=== PATIENT | female | born 1940 | race Caucasian/White ===

== ENCOUNTER 2019-02-04 20:56 | Emergency (ER) | payer BC ==
[~2019-02-04] VITALS: Ht 160 cm
[~2019-02-04 20:56] MED LIST: COUMADIN 5 MG TA5 M1 PO; ENOXAPARIN150 MG/11 SUBQ; LISINOPRIL10 MG PO; NORCO 5-325 TA1 EACH PO; PLAVIX 75 MG TA75 M1 PO
[2019-02-04 21:41] LABS: HEMATOCRIT 37.2 % (37.0-47.0); HEMOGLOBIN 12.1 gm/dL (12.0-15.0); MCH 31.5 pg (26.0-34.0); MCHC 32.6 g/dL (28.0-37.0); MCV 96.8 fL (80.0-100.0); MPV 7.8 fl. (7.2-11.1); NUCLEATED RBCS 1 /100WBC; PLATELET COUNT* 266 thou/uL (150-400); RBC 3.84 mil/uL (4.20-5.00)
[2019-02-04 21:47] LABS: WBC 49.7 thou/uL (4.0-11.0)
[2019-02-04 21:53] LABS: ANION GAP 10 mmol/L (7-16); BUN 21 mg/dL (7-18); CALCIUM 9.6 mg/dL (8.5-10.1); CHLORIDE 102 mmol/L (98-107); CO2 27 mmol/L (21-32); CREATININE 1.2 mg/dL (0.6-1.3); GLUCOSE 165 mg/dL (70-99); POTASSIUM 4.2 mmol/L (3.5-5.1); SODIUM 139 mmol/L (136-145); TROPONIN-I LEVEL <0.06 ng/mL (<0.06)
[2019-02-04 21:55] LABS: ALBUMIN 3.3 g/dL (3.4-5.0); ALKALINE PHOSPHATASE 89 U/L (46-116); MAGNESIUM 2.1 mg/dL (1.8-2.4); NT-PRO BRAIN NAT PEPTIDE 622 pg/mL (<300); SGOT 19 U/L (15-37); SGPT 22 U/L (30-65); TOTAL BILIRUBIN 0.4 mg/dL (<0.1-1.0); TOTAL PROTEIN 7.7 g/dL (6.4-8.2)
[2019-02-04 22:10] LABS: ABSOLUTE LYMPHOCYTES 41.3 thou/uL (0.8-5.3); ABSOLUTE MONOCYTES 1.5 thou/uL (0.0-1.2); ATYPICAL LYMPHS 13 %; PLATELET ESTIMATE ADEQUATE
[2019-02-04 22:38] LABS: URINE BILIRUBIN NEGATIVE (Negative); URINE BLOOD 3+ (Negative); URINE CLARITY CLEAR; URINE COLOR YELLOW; URINE GLUCOSE-RANDOM NEGATIVE (Negative); URINE KETONES NEGATIVE (Negative); URINE LEUKOCYTES-REFLEX NEGATIVE (Negative); URINE NITRITE-REFLEX NEGATIVE (Negative); URINE PROTEIN NEGATIVE (Negative); URINE SPECIFIC GRAVITY >= 1.030 (1.005-1.030); URINE UROBILINOGEN 0.2 E.U./dl (0.2-1.0)
[2019-02-04 22:45] LABS: SQUAMOUS 0-3 Few /LPF (0-3)
[2019-02-04 22:46] LABS: BACTERIA-REFLEX 1-9 Few /HPF (None Seen); CRYSTALS None Seen /LPF (None Seen); FINE GRANULAR CASTS 0-3 Few /LPF (None Seen); URINE RBC 0-2 Rare /HPF (0-2); URINE WBC-REFLEX 0-5 Rare /HPF (0-5)
[2019-02-04 22:59] LABS: APTT 44.1 Seconds (25.0-31.3); INR 3.9; PROTIME 39.4 Seconds (9.20-11.50)
[2019-02-04 23:40] VITALS: BP 179/77
--- NOTE | 2019-02-05 09:45 | EKG ---
[place] [address] ELECTROCARDIOGRAM REPORT Name: RODRIGUEZ VELA Room: [facility]#: [id number] Admission: 02/04/19 Attend Phys: Discharge: 02/04/19 Date of : 38 Report #: [id number] THIS REPORT FOR: //name// [facility] ED Test Date: 2019-02-04 Test Time: 21:20:18 Pat Name: RODRIGUEZ VELA Department: Room: 2 Gender: F [facility] Registrar: YVONNE : 1940 Requested By: MIKE Order Number: [id number] Sary MD: Max Beal Measurements Intervals [place] Rate: 93 P: 30 CA: 163 QRS: -15 QRSD: 86 T: 23 QT: 368 QTc: 458 Interpretive Statements Sinus rhythm Borderline left axis deviation Low voltage, precordial leads No previous ECG available for comparison Electronically Signed On 02-05-2019 9:45:11 CDT by Max Beal [email or web address] <ELECTRONICALLY SIGNED> By: Max Beal MD, [facility] 02/05/19 0945 19 19 Max Beal MD, FACC /EPI
== END 2019-02-04 23:40 | disposition short-term general hospital (02) ==
LOC: M.ERS 20:56
PROVIDERS: Personal Emergency Response Attendant
DX: I61.9 Nontraumatic intracerebral hemorrhage, unspecified (principal); I10 Essential (primary) hypertension; Z85.3 Personal history of malignant neoplasm of breast; Z90.49 Acquired absence of other specified parts of digestive tract; Z90.710 Acquired absence of both cervix and uterus; M19.90 Unspecified osteoarthritis, unspecified site; Z86.73 Personal history of transient ischemic attack (TIA), and cerebral infarction without residual deficits; Z88.0 Allergy status to penicillin